=== PATIENT | male | born 1975 | race Caucasian/White ===

== ENCOUNTER 2018-04-19 10:20 | Day surgery (SDC) | payer OTHER | END 2018-04-19 16:50 | disposition home or self-care (01) | LOC: AMB-ENDOS 10:20 | DX: K92.1 Melena (principal); K64.1 Second degree hemorrhoids ==

== ENCOUNTER 2019-08-20 05:00 | Inpatient (IN) | payer OTHER ==
[~2019-08-20 05:00] MED LIST: PROTONIX20 MG PO
[2019-08-21] MEDS ORDERED: NEURONTIN600 M1 PO (10:56)
[2019-08-21] MEDS ORDERED: PERCOCET 5-3251 EACH PO (10:56)
[2019-08-21] MEDS ORDERED: INTESTINEX680 M1 PO (10:57)
[2019-08-21] MEDS ORDERED: AUGMENTIN PO (11:01)
== END 2019-08-21 12:13 | disposition home or self-care (01) | DRG 419 ==
LOC: CIR.AMB 05:00 → O/R 13:21 → SURH 15:57 → O/R 17:07 → SURH 17:08
PROVIDERS: ADMIT Surgery
PROC: BF10YZZ Fluoroscopy of Bile Ducts using Other Contrast (ICD-10-PCS; 2019-08-20)
PROC: 3E0F7GC Introduction of Other Therapeutic Substance into Respiratory Tract, Via Natural or Artificial Opening (ICD-10-PCS; 2019-08-20)
PROC: 4A19X1Z Monitoring of Respiratory Capacity, External Approach (ICD-10-PCS; 2019-08-20)
PROC: 0FT44ZZ Resection of Gallbladder, Percutaneous Endoscopic Approach (ICD-10-PCS; principal; 2019-08-20 09:15)
DX: K80.00 Calculus of gallbladder with acute cholecystitis without obstruction (principal); K80.10 Calculus of gallbladder with chronic cholecystitis without obstruction; K82.A1 Gangrene of gallbladder in cholecystitis